=== PATIENT | female | born 1975 | race Caucasian/White ===

== ENCOUNTER 2016-12-08 13:28 | Emergency (ER) | payer MEDICAID, OTHER ==
[~2016-12-08] VITALS: Ht 172.7 cm; Wt 72.7 kg
[~2016-12-08 13:28] MED LIST: ANTIHYPERTENSIVE PO; METF500T4 PO
[2016-12-08] MEDS ORDERED: [UNRECOGNIZED DRUG - REMARK] PO (13:44)
[2016-12-08] MEDS ORDERED: [UNRECOGNIZED DRUG - REMARK] PO (13:44)
[2016-12-08 13:47] LABS: GLUCOSE,POINT OF CARE 411 MG/DL (70-110)
[2016-12-08] MEDS ORDERED: INSULIN REGULAR, HUMAN 100 UNITS/ML IVP ONE (14:15)
[2016-12-08] MEDS ORDERED: SODIUM CHLORIDE 0.9% 1,000 ML IV ONE (14:15)
[2016-12-08 14:27] LABS: HEMATOCRIT 36.4 % (36-46); MEAN CORPUSCULAR VOLUME 83 fL (80-100); PLATELET COUNT (AUTO) 233 K/uL (150-450); RED CELL DISTRIBUTION WIDTH 13.1 % (11.5-14.5); WHITE BLOOD COUNT (AUTO) 7.1 K/uL (4.5-11.0)
[2016-12-08 14:52] LABS: GLUCOSE,POINT OF CARE 392 MG/DL (70-110)
[2016-12-08 14:53] LABS: ANION GAP 15 mmol/L (8-16); CARBON DIOXIDE 18 mmol/L (22-29); CHLORIDE 95 mmol/L (98-107); POTASSIUM 3.9 mmol/L (3.5-5.1); SODIUM SERUM 128 mmol/L (136-145)
[2016-12-08 15:19] LABS: MEAN CORPUSCULAR HGB CONC 35.7 G/dL (31.0-37.0)
[2016-12-08 15:20] LABS: MEAN CORPUSCULAR HEMOGLOBIN 29.5 pg (26.0-34.0)
[2016-12-08 15:24] LABS: LYMPHOCYTES % (MANUAL) 21 % (22-44); RBC MORPHOLOGY COMMENT NORMAL RBC MORPH; TOTAL CELLS COUNTED 100
[2016-12-08 16:02] LABS: BILIRUBIN,TOTAL 0.4 mg/dL (0.1-1.0); CALCIUM, TOTAL 8.9 mg/dL (8.8-10.5); CREATININE 0.54 mg/dL (0.60-1.30); GLOMERULAR FILTR. RATE CALC > 60 mL/min (>60)
[2016-12-08 16:03] LABS: ALANINE AMINOTRANSFERASE 43 U/L (12-78); ASPARTATE AMINOTRANSFERASE 30 U/L (15-37); TOTAL PROTEIN, SERUM 7.3 g/dL (6.4-8.2)
[2016-12-08 16:04] LABS: UREA NITROGEN, BLOOD 12 mg/dL (7-18)
[2016-12-08 16:05] LABS: ALBUMIN 4.2 g/dL (3.4-5.0)
[2016-12-08 16:35] VITALS: BP 140/88
[2016-12-08 18:27] LABS: GLUCOSE,POINT OF CARE 333 MG/DL (70-110)
== END 2016-12-08 16:37 | disposition home or self-care (01) ==
LOC: EMS 13:35
DX: F32.9 Major depressive disorder, single episode, unspecified (principal); E11.65 Type 2 diabetes mellitus with hyperglycemia; F41.9 Anxiety disorder, unspecified; I10 Essential (primary) hypertension; Z91.19 Patient's noncompliance with other medical treatment and regimen
CPT/HCPCS: 36415; 80053; 82962; 85025; 96361; 96374; 99284; G0480; J1815; J7030

== ENCOUNTER 2016-12-21 09:08 | Inpatient (IN) | payer OTHER ==
[~2016-12-21] VITALS: Ht 167.6 cm; Wt 77.5 kg
[~2016-12-21 09:08] MED LIST changes: +[UNRECOGNIZED DRUG - REMARK] PO; +[UNRECOGNIZED DRUG - REMARK] PO
[2016-12-21 09:42] LABS: GLUCOSE COMMENT 2 Doctor Notified; GLUCOSE,POINT OF CARE 412 MG/DL (70-110)
[2016-12-21] MEDS ORDERED: PERCT PO (09:46)
[2016-12-21] MEDS ORDERED: AMOX500T2 PO (09:46)
[2016-12-21] MEDS ORDERED: SODIUM CHLORIDE 0.9% 1,000 ML IV ONE ×3 (10:15→15:15)
[2016-12-21 10:56] LABS: HEMATOCRIT 37.6 % (36-46); MEAN CORPUSCULAR VOLUME 84 fL (80-100); PLATELET COUNT (AUTO) 288 K/uL (150-450); RED BLOOD CELL COUNT(AUTO) 4.46 MIL/uL (4.00-5.20); RED CELL DISTRIBUTION WIDTH 12.8 % (11.5-14.5); WHITE BLOOD COUNT (AUTO) 6.6 K/uL (4.5-11.0)
[2016-12-21 11:02] LABS: LYMPHOCYTES % (MANUAL) 26 % (22-44); RBC MORPHOLOGY COMMENT NORMAL RBC MORPH; TOTAL CELLS COUNTED 100
[2016-12-21 11:07] LABS: GLUCOSE,POINT OF CARE 378 MG/DL (70-110)
[2016-12-21 11:08] LABS: ANION GAP 22 mmol/L (8-16); CARBON DIOXIDE 13 mmol/L (22-29); CHLORIDE 90 mmol/L (98-107); POTASSIUM 3.6 mmol/L (3.5-5.1); SODIUM SERUM 125 mmol/L (136-145)
[2016-12-21 11:28] LABS: ASPARTATE AMINOTRANSFERASE 14 U/L (15-37); BILIRUBIN,TOTAL 0.5 mg/dL (0.1-1.0); CALCIUM, TOTAL 8.8 mg/dL (8.8-10.5); CREATININE 0.59 mg/dL (0.60-1.30); GLOMERULAR FILTR. RATE CALC > 60 mL/min (>60)
[2016-12-21 11:29] LABS: ALANINE AMINOTRANSFERASE 32 U/L (12-78); ALBUMIN 4.2 g/dL (3.4-5.0)
[2016-12-21 11:30] LABS: UREA NITROGEN, BLOOD 10 mg/dL (7-18)
[2016-12-21] MEDS ORDERED: KETOROLAC TROMETHAMINE 30 MG/ML VIAL IVP ONE (11:30)
[2016-12-21 12:29] LABS: APPEARANCE,URINE CLEAR (CLEAR); GLUCOSE, URINE (UA) >=1000 mg/dL (NEGATIVE); KETONES,URINE TRACE mg/dL (NEGATIVE); LEUKOCYTE ESTERASE ,URINE NEGATIVE (NEGATIVE); OCCULT BLOOD,URINE NEGATIVE (NEGATIVE); PH,URINE 5.5 (5.0-8.0); PROTEIN,URINE NEGATIVE (NEGATIVE)
[2016-12-21 12:32] LABS: ANION GAP 21 mmol/L (8-16); CARBON DIOXIDE 12 mmol/L (22-29); CHLORIDE 93 mmol/L (98-107); POTASSIUM 3.5 mmol/L (3.5-5.1); SODIUM SERUM 126 mmol/L (136-145)
[2016-12-21 12:35] LABS: RBC,URINE None Seen /HPF (0-2); SQUAMOUS EPITHELIAL CELL,UR Few /LPF (None Seen); WBC,URINE None Seen /HPF (0-5)
[2016-12-21 13:05] LABS: ALANINE AMINOTRANSFERASE 32 U/L (12-78); ASPARTATE AMINOTRANSFERASE 13 U/L (15-37); BILIRUBIN,TOTAL 0.4 mg/dL (0.1-1.0); CREATININE 0.42 mg/dL (0.60-1.30); GLOMERULAR FILTR. RATE CALC > 60 mL/min (>60); TOTAL PROTEIN, SERUM 6.1 g/dL (6.4-8.2)
[2016-12-21 13:06] LABS: ALBUMIN 3.6 g/dL (3.4-5.0); UREA NITROGEN, BLOOD 10 mg/dL (7-18)
[2016-12-21 13:17] LABS: GLUCOSE,POINT OF CARE 307 MG/DL (70-110)
[2016-12-21] MEDS ORDERED: POTASSIUM CHL 20 MEQ/0.45% NS 1,000 ML IV PRN (13:23)
[2016-12-21] MEDS ORDERED: SODIUM CHLORIDE 0.45% 1,000 ML IV PRN (13:23)
[2016-12-21] MEDS ORDERED: INSULIN REGULAR, HUMAN 100 UNITS in SODIUM CHLORIDE 0.9% 99 ML IV PRN ×2 (13:23)
[2016-12-21] MEDS ORDERED: POTASSIUM CHLORIDE 40 MEQ in SODIUM CHLORIDE 0.45% 1,000 ML IV PRN (13:23)
[2016-12-21] MEDS ORDERED: SODIUM CHLORIDE 0.9% 1,000 ML IV SCH (13:23)
[2016-12-21] MEDS ORDERED: DEXTROSE 5%-0.45% SODIUM CHL 1,000 ML IV PRN (13:23)
[2016-12-21 13:25] LABS: MAGNESIUM 1.44 mg/dL (1.80-2.40); PHOSPHORUS 3.5 mg/dL (2.5-4.9)
[2016-12-21] MEDS ORDERED: INSULIN REGULAR, HUMAN 100 UNITS/ML IVP ONE (13:30)
[2016-12-21] MEDS ORDERED: 0.9% SODIUM CHLORIDE 10 ML SYRINGE IVP PRN (13:30)
[2016-12-21] MEDS ORDERED: ACETAMINOPHEN 325 MG TABLET PO PRN ×2 (13:30→15:30)
[2016-12-21] MEDS ORDERED: DEXTROSE 50%-WATER 25 GM/50 ML SYRINGE IVP PRN ×2 (13:30→15:45)
[2016-12-21] MEDS ORDERED: ONDANSETRON HCL 4 MG/2 ML VIAL IVP PRN ×2 (13:30→15:30)
[2016-12-21] MEDS ORDERED: INSULIN REGULAR, HUMAN 100 UNITS/ML IVP PRN (13:30)
[2016-12-21 13:57] LABS: GLUCOSE,POINT OF CARE 294 MG/DL (70-110)
[2016-12-21 14:11] LABS: HEMOGLOBIN 13.5 g/dL (12.0-16.0)
[2016-12-21 14:12] LABS: MEAN CORPUSCULAR HEMOGLOBIN 30.2 pg (26.0-34.0); MEAN CORPUSCULAR HGB CONC 35.8 G/dL (31.0-37.0)
[2016-12-21 14:24] LABS: HEMATOCRIT 31.7 % (36-46); MEAN CORPUSCULAR VOLUME 84 fL (80-100); PLATELET COUNT (AUTO) 257 K/uL (150-450); RED BLOOD CELL COUNT(AUTO) 3.78 MIL/uL (4.00-5.20); RED CELL DISTRIBUTION WIDTH 12.8 % (11.5-14.5); WHITE BLOOD COUNT (AUTO) 6.4 K/uL (4.5-11.0)
[2016-12-21 14:26] LABS: ABG BASE EXCESS -1.9 mmol/L (-2.0-3.0); ABG HCO3 23.2 mmol/L (22.0-26.0); ABG OXYHEMOGLOBIN 94.6 % (94.0-100.0); ABG PCO2 36 mmHg (35-45); ABG PH 7.421 (7.350-7.450); TEMPERATURE, FAHRENHEIT, BG 98.7 FAHREN (96.0-98.6)
[2016-12-21 14:27] LABS: ALLEN TEST, BLOOD GAS Positive
[2016-12-21 14:32] LABS: ANION GAP 16 mmol/L (8-16); CARBON DIOXIDE 16 mmol/L (22-29); CHLORIDE 97 mmol/L (98-107); POTASSIUM 3.3 mmol/L (3.5-5.1); SODIUM SERUM 129 mmol/L (136-145)
[2016-12-21] MEDS: POTASSIUM CHL 40 MEQ/D5-0.45NS 1,000 ML IV SCH ×2 (14:42→14:45)
[2016-12-21 14:50] LABS: CALCIUM, TOTAL 7.7 mg/dL (8.8-10.5); CREATININE 0.36 mg/dL (0.60-1.30); GLOMERULAR FILTR. RATE CALC > 60 mL/min (>60); UREA NITROGEN, BLOOD 8 mg/dL (7-18)
[2016-12-21 14:51] LABS: HEMOGLOBIN 11.2 g/dL (12.0-16.0); MEAN CORPUSCULAR HEMOGLOBIN 29.6 pg (26.0-34.0); MEAN CORPUSCULAR HGB CONC 35.4 G/dL (31.0-37.0)
[2016-12-21 14:58] LABS: GLUCOSE,POINT OF CARE 249 MG/DL (70-110)
[2016-12-21] MEDS ORDERED: INSULIN REGULAR, HUMAN 100 UNITS/ML SQ STA (15:05)
[2016-12-21] MEDS ORDERED: ALBUTEROL SULFATE 2.5 MG/0.5 ML NEB SOLUTION NEB PRN (15:30)
[2016-12-21] MEDS ORDERED: IPRATROPIUM BROMIDE 0.5 MG/2.5 ML NEB SOLUTION NEB PRN (15:30)
[2016-12-21] MEDS ORDERED: MAGNESIUM HYDROXIDE SUSPENSION 30 ML UDCUP PO PRN (15:30)
[2016-12-21] MEDS ORDERED: BISACODYL 10 MG RECTAL RECTAL SUPPOSITORY PR PRN (15:30)
[2016-12-21] MEDS ORDERED: ZOLPIDEM TARTRATE 5 MG TABLET PO PRN (15:30)
[2016-12-21 15:45] LABS: BAND NEUTROPHILS % (MANUAL) 1 % (1-5); EOSINOPHILS % (MANUAL) 2 % (1-6); LYMPHOCYTES % (MANUAL) 21 % (22-44); REACTIVE LYMPHOCYTES 2 % (0-0); TOTAL CELLS COUNTED 100
[2016-12-21] MEDS: SODIUM CHLORIDE 0.9% 1,000 ML IV SCH ×2 (15:45→18:35)
[2016-12-21 15:54] LABS: RBC MORPHOLOGY COMMENT NORMAL RBC MORPH
[2016-12-21 16:14] VITALS: BP 143/88
[2016-12-21 16:33] VITALS: BP 143/88
[2016-12-21] MEDS: MORPHINE SULFATE 2 MG/ML SYRINGE IVP PRN ×2 (16:45→22:53)
[2016-12-21] MEDS: HEPARIN SODIUM,PORCINE 5,000 UNITS/ML VIAL SQ SCH ×2 (16:45→22:53)
[2016-12-21 17:27] LABS: GLUCOSE COMMENT 1 Received Meds; GLUCOSE,POINT OF CARE 188 MG/DL (70-110)
[2016-12-21] MEDS ORDERED: INSULIN DETEMIR 100 UNITS/ML SQ SCH (17:30)
[2016-12-21] MEDS: INSULIN ASPART 100 UNITS/ML SQ PRN ×2 (18:04→20:10)
[2016-12-21 18:23] LABS: ANION GAP 21 mmol/L (8-16); CARBON DIOXIDE 13 mmol/L (22-29); CHLORIDE 96 mmol/L (98-107); POTASSIUM 3.3 mmol/L (3.5-5.1); SODIUM SERUM 130 mmol/L (136-145); UREA NITROGEN, BLOOD 7 mg/dL (7-18)
[2016-12-21 18:25] LABS: CREATININE 0.35 mg/dL (0.60-1.30); GLOMERULAR FILTR. RATE CALC > 60 mL/min (>60)
[2016-12-21 19:53] VITALS: BP 120/77
[2016-12-21] MEDS: DOCUSATE SODIUM 100 MG CAPSULE PO SCH (20:10)
[2016-12-21 21:23] LABS: GLUCOSE COMMENT 1 Received Meds; GLUCOSE,POINT OF CARE 328 MG/DL (70-110)
[2016-12-21 22:01] LABS: ANION GAP 14 mmol/L (8-16); CARBON DIOXIDE 19 mmol/L (22-29); CHLORIDE 98 mmol/L (98-107); SODIUM SERUM 131 mmol/L (136-145)
[2016-12-21 22:25] LABS: CALCIUM, TOTAL 7.7 mg/dL (8.8-10.5); CREATININE 0.43 mg/dL (0.60-1.30); GLOMERULAR FILTR. RATE CALC > 60 mL/min (>60)
[2016-12-21 22:26] LABS: UREA NITROGEN, BLOOD 8 mg/dL (7-18)
[2016-12-21 23:08] LABS: GLUCOSE COMMENT 1 Received Meds; GLUCOSE,POINT OF CARE 235 MG/DL (70-110)
[2016-12-22] MEDS ORDERED: POTASSIUM CHLORIDE 20 MEQ ER TABLET PO ONE
[2016-12-22 00:07] VITALS: BP 120/70
[2016-12-22 04:30] VITALS: BP 133/87
[2016-12-22 05:18] LABS: GLUCOSE COMMENT 1 Received Meds; GLUCOSE,POINT OF CARE 266 MG/DL (70-110)
[2016-12-22] MEDS: SODIUM CHLORIDE 0.9% 1,000 ML IV SCH ×2 (06:00→11:30)
[2016-12-22] MEDS: INSULIN ASPART 100 UNITS/ML SQ PRN (06:04)
[2016-12-22 06:22] LABS: HEMATOCRIT 35.3 % (36-46); MEAN CORPUSCULAR VOLUME 85 fL (80-100); PLATELET COUNT (AUTO) 280 K/uL (150-450); RED BLOOD CELL COUNT(AUTO) 4.15 MIL/uL (4.00-5.20); RED CELL DISTRIBUTION WIDTH 12.8 % (11.5-14.5); WHITE BLOOD COUNT (AUTO) 5.9 K/uL (4.5-11.0)
[2016-12-22 07:03] LABS: ANION GAP 10 mmol/L (8-16); CARBON DIOXIDE 24 mmol/L (22-29); CHLORIDE 96 mmol/L (98-107); POTASSIUM 3.6 mmol/L (3.5-5.1); SODIUM SERUM 130 mmol/L (136-145)
[2016-12-22 07:47] LABS: CALCIUM, TOTAL 7.9 mg/dL (8.8-10.5); CREATININE 0.36 mg/dL (0.60-1.30); GLOMERULAR FILTR. RATE CALC > 60 mL/min (>60)
[2016-12-22 07:48] LABS: ALANINE AMINOTRANSFERASE 31 U/L (12-78); ALBUMIN 3.8 g/dL (3.4-5.0); ASPARTATE AMINOTRANSFERASE 19 U/L (15-37); BILIRUBIN,TOTAL 0.4 mg/dL (0.1-1.0); TOTAL PROTEIN, SERUM 6.4 g/dL (6.4-8.2)
[2016-12-22 07:49] LABS: UREA NITROGEN, BLOOD 6 mg/dL (7-18)
[2016-12-22 07:50] VITALS: BP 134/75
[2016-12-22 07:56] LABS: MAGNESIUM 1.44 mg/dL (1.80-2.40)
[2016-12-22 08:04] LABS: HEMOGLOBIN 12.2 g/dL (12.0-16.0)
[2016-12-22 08:05] LABS: MEAN CORPUSCULAR HEMOGLOBIN 29.4 pg (26.0-34.0); MEAN CORPUSCULAR HGB CONC 34.6 G/dL (31.0-37.0)
[2016-12-22] MEDS: HYDROCODONE/ACETAMINOPHEN 5-325 MG TABLET PO PRN ×2 (08:44→16:02)
[2016-12-22] MEDS: DOCUSATE SODIUM 100 MG CAPSULE PO SCH (08:45)
[2016-12-22] MEDS: HEPARIN SODIUM,PORCINE 5,000 UNITS/ML VIAL SQ SCH (08:45)
[2016-12-22] MEDS ORDERED: ENOXAPARIN SODIUM 40 MG/0.4 ML PF SYRINGE SQ SCH (09:00)
[2016-12-22] MEDS ORDERED: PANTOPRAZOLE SODIUM 40 MG/VIAL IVP SCH (09:00)
[2016-12-22 09:41] LABS: ANION GAP 12 mmol/L (8-16); CARBON DIOXIDE 22 mmol/L (22-29); CHLORIDE 96 mmol/L (98-107); POTASSIUM 3.5 mmol/L (3.5-5.1); SODIUM SERUM 130 mmol/L (136-145)
[2016-12-22 09:55] LABS: EOSINOPHILS % (MANUAL) 1 % (1-6); LYMPHOCYTES % (MANUAL) 28 % (22-44); REACTIVE LYMPHOCYTES 1 % (0-0); TOTAL CELLS COUNTED 100
[2016-12-22 10:13] LABS: CALCIUM, TOTAL 8.2 mg/dL (8.8-10.5); CREATININE 0.47 mg/dL (0.60-1.30); GLOMERULAR FILTR. RATE CALC > 60 mL/min (>60)
[2016-12-22 10:14] LABS: UREA NITROGEN, BLOOD 5 mg/dL (7-18)
[2016-12-22 11:17] LABS: GLUCOSE,POINT OF CARE 245 MG/DL (70-110)
[2016-12-22 13:41] LABS: ANION GAP 11 mmol/L (8-16); CARBON DIOXIDE 24 mmol/L (22-29); CHLORIDE 95 mmol/L (98-107); POTASSIUM 3.7 mmol/L (3.5-5.1); SODIUM SERUM 130 mmol/L (136-145)
[2016-12-22 14:00] LABS: CALCIUM, TOTAL 8.3 mg/dL (8.8-10.5); CREATININE 0.42 mg/dL (0.60-1.30); GLOMERULAR FILTR. RATE CALC > 60 mL/min (>60); UREA NITROGEN, BLOOD 6 mg/dL (7-18)
[2016-12-22 15:37] VITALS: BP 111/66
[2016-12-22] MEDS ORDERED: INSULIN DETEMIR 100 UNITS/ML SQ SCH (18:00)
== END 2016-12-22 16:00 | disposition home or self-care (01) | DRG 420 ==
LOC: EMS 09:11 → ICU 13:52 → 6N 15:45
PROVIDERS: ADMIT Hospitalist; ATTEND Hospitalist
DX: E11.01 Type 2 diabetes mellitus with hyperosmolarity with coma (principal); E83.42 Hypomagnesemia; I10 Essential (primary) hypertension; E87.1 Hypo-osmolality and hyponatremia; Z98.51 Tubal ligation status
CPT/HCPCS: 82805; 82962; 83605; 83735; 84100; 96361; 96374; 96375; 99291; C9113; J1644; J1815; J1885; J2270; J3480; J7030; J7050

== ENCOUNTER 2017-08-15 19:51 | Emergency (ER) | payer OTHER ==
[~2017-08-15] VITALS: Ht 170.2 cm; Wt 78.2 kg
[~2017-08-15 19:51] MED LIST changes: -ANTIHYPERTENSIVE PO; -METF500T4 PO; -[UNRECOGNIZED DRUG - REMARK] PO
[2017-08-15 20:23] LABS: GLUCOSE,POINT OF CARE 255 MG/DL (70-110)
[2017-08-15] MEDS ORDERED: CITA-106 PO (20:25)
[2017-08-15] MEDS ORDERED: GABA-531 PO (20:25)
[2017-08-15] MEDS ORDERED: ALPR0.255 PO (20:25)
[2017-08-15] MEDS ORDERED: INSLAN SQ (20:25)
[2017-08-15] MEDS ORDERED: INSU100C6 SQ (20:25)
[2017-08-15 21:29] LABS: BASOPHILS % (AUTO) 0.8 % (0.0-2.0); EOSINOPHILS % (AUTO) 2.7 % (1.0-6.0); HEMATOCRIT 39.2 % (36-46); HEMOGLOBIN 13.9 g/dL (12.0-16.0); LYMPHOCYTES # (AUTO) 2.1 K/uL (1.0-4.8); LYMPHOCYTES % (AUTO) 26.9 % (22.0-44.0); MEAN CORPUSCULAR HEMOGLOBIN 29.6 pg (26.0-34.0); MEAN CORPUSCULAR HGB CONC 35.4 G/dL (31.0-37.0); MEAN CORPUSCULAR VOLUME 84 fL (80-100); MONOCYTES # (AUTO) 0.5 K/uL (0.1-1.0); MONOCYTES % (AUTO) 6.6 % (2.0-9.0); PLATELET COUNT (AUTO) 269 K/uL (150-450); RED BLOOD CELL COUNT(AUTO) 4.68 MIL/uL (4.00-5.20); RED CELL DISTRIBUTION WIDTH 13.5 % (11.5-14.5)
[2017-08-15 21:36] LABS: APPEARANCE,URINE CLEAR (CLEAR); BILIRUBIN,URINE NEGATIVE (NEGATIVE); GLUCOSE, URINE (UA) 500 mg/dL (NEGATIVE); KETONES,URINE TRACE mg/dL (NEGATIVE); LEUKOCYTE ESTERASE ,URINE NEGATIVE (NEGATIVE); NITRATE,URINE NEGATIVE (NEGATIVE); OCCULT BLOOD,URINE NEGATIVE (NEGATIVE); PH,URINE 5.5 (5.0-8.0); PROTEIN,URINE POS 1+ (NEGATIVE); UROBILINOGEN,URINE 0.2 mg/dL (<=1.0)
[2017-08-15 21:39] LABS: ANION GAP 13 mmol/L (8-16); CALCIUM, TOTAL 8.8 mg/dL (8.8-10.5); CARBON DIOXIDE 24 mmol/L (22-29); CHLORIDE 99 mmol/L (98-107); CREATININE 0.57 mg/dL (0.60-1.30); GLOMERULAR FILTR. RATE CALC > 60 mL/min (>60); GLUCOSE,RANDOM 253 mg/dL (70-110); POTASSIUM 3.7 mmol/L (3.5-5.1); SODIUM SERUM 136 mmol/L (136-145); UREA NITROGEN, BLOOD 14 mg/dL (7-18)
[2017-08-15 21:44] LABS: ALANINE AMINOTRANSFERASE 56 U/L (12-78); ALBUMIN 4.1 g/dL (3.4-5.0); ALKALINE PHOSPHATASE 75 U/L (46-116); ASPARTATE AMINOTRANSFERASE 17 U/L (15-37); BILIRUBIN,TOTAL 0.7 mg/dL (0.1-1.0); TOTAL PROTEIN, SERUM 8.2 g/dL (6.4-8.2)
[2017-08-15] MEDS ORDERED: SODIUM CHLORIDE 0.9% 1,000 ML IV ONE ×2 (21:45→22:00)
[2017-08-15 21:55] LABS: BACTERIA,URINE Few /HPF (None Seen); RBC,URINE 0-2 /HPF (0-2); WBC,URINE 0-2 /HPF (0-5)
[2017-08-15 21:56] LABS: SQUAMOUS EPITHELIAL CELL,UR Moderate /LPF (None Seen); YEAST,URINE Rare /HPF (None Seen)
[2017-08-15 22:27] VITALS: BP 142/87
[2017-08-15] MEDS ORDERED: PHENYLEPHRINE HCL 0.25% 15 ML NASAL SPRAY NASAL ONE (22:30)
== END 2017-08-15 23:20 | disposition home or self-care (01) ==
LOC: EMS 19:52
DX: E11.65 Type 2 diabetes mellitus with hyperglycemia (principal); E86.0 Dehydration; E78.00 Pure hypercholesterolemia, unspecified; I10 Essential (primary) hypertension; J32.9 Chronic sinusitis, unspecified; Z79.4 Long term (current) use of insulin
CPT/HCPCS: 36415; 80053; 81001; 82962; 85025; 96360; 99284; J7030

== ENCOUNTER 2018-09-24 17:34 | Emergency (ER) | payer OTHER ==
[~2018-09-24] VITALS: Ht 165.1 cm; Wt 77.3 kg
[~2018-09-24 17:34] MED LIST changes: +ALPR0.255 PO; +CITA-106 PO; +GABA-531 PO; +INSLAN SQ; +INSU100C6 SQ; -[UNRECOGNIZED DRUG - REMARK] PO
[2018-09-24 17:59] LABS: GLUCOSE,POINT OF CARE 163 MG/DL (70-110)
[2018-09-24 18:21] LABS: BASOPHILS % (AUTO) 0.9 % (0.0-2.0); EOSINOPHILS % (AUTO) 1.6 % (1.0-6.0); HEMATOCRIT 39.2 % (36-46); HEMOGLOBIN 13.7 g/dL (12.0-16.0); LYMPHOCYTES # (AUTO) 2.5 K/uL (1.0-4.8); LYMPHOCYTES % (AUTO) 29.5 % (22.0-44.0); MEAN CORPUSCULAR HEMOGLOBIN 30.3 pg (26.0-34.0); MEAN CORPUSCULAR HGB CONC 34.8 G/dL (31.0-37.0); MEAN CORPUSCULAR VOLUME 87 fL (80-100); MONOCYTES # (AUTO) 0.3 K/uL (0.1-1.0); NEUTROPHILS # (AUTO) 5.4 K/uL (1.8-7.7); PLATELET COUNT (AUTO) 275 K/uL (150-450); RED BLOOD CELL COUNT(AUTO) 4.51 MIL/uL (4.00-5.20); RED CELL DISTRIBUTION WIDTH 13.3 % (11.5-14.5)
[2018-09-24 18:31] LABS: ANION GAP 11 mmol/L (8-16); CARBON DIOXIDE 26 mmol/L (22-29); CHLORIDE 101 mmol/L (98-107); CREATININE 0.72 mg/dL (0.60-1.30); GLOMERULAR FILTR. RATE CALC > 60 mL/min (>60); GLUCOSE,RANDOM 160 mg/dL (70-110); POTASSIUM 3.6 mmol/L (3.5-5.1); SODIUM SERUM 138 mmol/L (136-145); UREA NITROGEN, BLOOD 14 mg/dL (7-18)
[2018-09-24 18:32] LABS: PROTHROMBIN TIME 10.1 SEC (9.4-11.6)
[2018-09-24 18:42] LABS: ALANINE AMINOTRANSFERASE 61 U/L (12-78); ALKALINE PHOSPHATASE 68 U/L (46-116); BILIRUBIN,TOTAL 0.4 mg/dL (0.1-1.0); CREATINE KINASE, TOTAL ONLY 42 U/L (26-192); HCG,QUANTITATIVE < 1 mIU/mL (0-6); TOTAL PROTEIN, SERUM 7.9 g/dL (6.4-8.2)
[2018-09-24 18:54] LABS: B-TYPE NATRIURETIC PEPTIDE 47 pg/mL (0-100)
[2018-09-24] MEDS ORDERED: KETOROLAC TROMETHAMINE 30 MG/ML VIAL IVP ONE (19:00)
[2018-09-24 19:04] LABS: ASPARTATE AMINOTRANSFERASE 34 U/L (15-37)
[2018-09-24 20:54] LABS: BILIRUBIN,URINE NEGATIVE (NEGATIVE); GLUCOSE, URINE (UA) NEGATIVE (NEGATIVE); KETONES,URINE NEGATIVE (NEGATIVE); LEUKOCYTE ESTERASE ,URINE SMALL (NEGATIVE); NITRATE,URINE NEGATIVE (NEGATIVE); OCCULT BLOOD,URINE TRACE (NEGATIVE); PH,URINE 6.5 (5.0-8.0); PROTEIN,URINE NEGATIVE (NEGATIVE)
[2018-09-24 20:57] LABS: APPEARANCE,URINE HAZY (CLEAR); BACTERIA,URINE None Seen /HPF (None Seen); RBC,URINE 0-2 /HPF (0-2); SQUAMOUS EPITHELIAL CELL,UR Moderate /LPF (None Seen)
[2018-09-24 22:03] VITALS: BP 142/90
== END 2018-09-24 22:06 | disposition home or self-care (01) ==
LOC: EMS 17:36
DX: M54.6 Pain in thoracic spine (principal); R07.89 Other chest pain; E11.9 Type 2 diabetes mellitus without complications; E78.00 Pure hypercholesterolemia, unspecified; I10 Essential (primary) hypertension; Z79.4 Long term (current) use of insulin
CPT/HCPCS: 36415; 71045; 80053; 81001; 82550; 82962; 83880; 84484; 84702; 85025; 85610; 85730; 93005; 96374; 99285; J1885

== ENCOUNTER 2018-09-25 15:19 | Emergency (ER) | payer OTHER ==
[~2018-09-25] VITALS: Ht 167.6 cm; Wt 78.7 kg
[2018-09-25 15:33] LABS: GLUCOSE,POINT OF CARE 143 MG/DL (70-110)
[2018-09-25 16:29] LABS: EOSINOPHILS % (AUTO) 0.6 % (1.0-6.0); HEMATOCRIT 41.5 % (36-46); HEMOGLOBIN 14.3 g/dL (12.0-16.0); LYMPHOCYTES # (AUTO) 1.8 K/uL (1.0-4.8); LYMPHOCYTES % (AUTO) 17.2 % (22.0-44.0); MEAN CORPUSCULAR HEMOGLOBIN 29.8 pg (26.0-34.0); MEAN CORPUSCULAR HGB CONC 34.4 G/dL (31.0-37.0); MEAN CORPUSCULAR VOLUME 87 fL (80-100); MONOCYTES # (AUTO) 0.4 K/uL (0.1-1.0); MONOCYTES % (AUTO) 3.9 % (2.0-9.0); NEUTROPHILS # (AUTO) 7.9 K/uL (1.8-7.7); NEUTROPHILS % (AUTO) 77.3 % (40.0-70.0); PLATELET COUNT (AUTO) 273 K/uL (150-450); RED BLOOD CELL COUNT(AUTO) 4.79 MIL/uL (4.00-5.20); RED CELL DISTRIBUTION WIDTH 13.3 % (11.5-14.5)
[2018-09-25] MEDS ORDERED: MORPHINE SULFATE 4 MG/ML SYRINGE IVP ONE (16:30)
[2018-09-25] MEDS ORDERED: ONDANSETRON HCL 4 MG/2 ML VIAL IVP ONE ×2 (16:30→19:30)
[2018-09-25 16:45] LABS: ANION GAP 11 mmol/L (8-16); CALCIUM, TOTAL 9.8 mg/dL (8.8-10.5); CARBON DIOXIDE 25 mmol/L (22-29); CHLORIDE 97 mmol/L (98-107); CREATININE 0.68 mg/dL (0.60-1.30); GLOMERULAR FILTR. RATE CALC > 60 mL/min (>60); GLUCOSE,RANDOM 195 mg/dL (70-110); SODIUM SERUM 133 mmol/L (136-145); UREA NITROGEN, BLOOD 11 mg/dL (7-18)
[2018-09-25 17:10] LABS: ALANINE AMINOTRANSFERASE 63 U/L (12-78); ALBUMIN 4.2 g/dL (3.4-5.0); ALKALINE PHOSPHATASE 62 U/L (46-116); ASPARTATE AMINOTRANSFERASE 39 U/L (15-37); BILIRUBIN,TOTAL 0.8 mg/dL (0.1-1.0); CREATINE KINASE, TOTAL ONLY 136 U/L (26-192); TOTAL PROTEIN, SERUM 8.2 g/dL (6.4-8.2)
[2018-09-25] MEDS ORDERED: SODIUM CHLORIDE 0.9% 1,000 ML IV ONE (17:45)
[2018-09-25] MEDS ORDERED: SODIUM CHLORIDE 0.9% 100 ML ONE (18:11)
[2018-09-25] MEDS ORDERED: IOVERSOL 320 MG/ML 100 ML VIAL ONE (18:11)
[2018-09-25] MEDS ORDERED: NITROGLYCERIN 2% (1 GM=INCH) PACKET TP ONE (18:15)
[2018-09-25] MEDS ORDERED: MORPHINE SULFATE 2 MG/ML SYRINGE IVP ONE (18:30)
[2018-09-25] MEDS ORDERED: ASPIRIN 325 MG EC TABLET PO ONE (20:00)
[2018-09-25] MEDS ORDERED: HEPARIN SODIUM,PORCINE 5,000 UNITS/ML VIAL IVP PRN ×2 (20:00)
[2018-09-25] MEDS ORDERED: HEPARIN SODIUM 25000 UNITS/D5W 250 ML IV PRN (20:00)
[2018-09-25 20:28] LABS: PROTHROMBIN TIME 10.3 SEC (9.4-11.6)
[2018-09-25] MEDS ORDERED: HEPARIN SODIUM,PORCINE 5,000 UNITS/ML VIAL IVP ONE (20:30)
[2018-09-25] MEDS ORDERED: HYDROmorphone 2 MG/ML SYRINGE IVP ONE (21:30)
[2018-09-25] MEDS ORDERED: METOCLOPRAMIDE HCL 5 MG/ML 2 ML VIAL IVP ONE (21:45)
[2018-09-25] MEDS ORDERED: SODIUM CHLORIDE 0.9% 500 ML IV ONE (21:45)
[2018-09-25 22:02] VITALS: BP 129/81
== END 2018-09-25 23:00 | disposition short-term general hospital (02) ==
LOC: EMS 15:20
DX: I21.4 Non-ST elevation (NSTEMI) myocardial infarction (principal); E11.9 Type 2 diabetes mellitus without complications; I10 Essential (primary) hypertension; E78.00 Pure hypercholesterolemia, unspecified; Z79.4 Long term (current) use of insulin
CPT/HCPCS: 36415; 71260; 80053; 82550; 82962; 84484; 85025; 85610; 85730; 93005 ×2; 96365; 96366; 96375; 96376; 99291; J1170; J1644 ×2; J2270 ×2; J2405; J2765; J7030; J7040; J7050; Q9967

== ENCOUNTER 2024-06-30 18:25 | Emergency (ER) | payer MEDICAID, OTHER ==
[~2024-06-30] VITALS: Ht 165.1 cm; Wt 70.5 kg
[~2024-06-30 18:25] MED LIST changes: -ALPR0.255 PO; +CIPR500T10 PO; -CITA-106 PO; +CITA-144 PO; +GABA-1181 PO; -GABA-531 PO; -INSU100C6 SQ
[2024-06-30 18:35] VITALS: BP 171/94; PULSE 90; RESP 18; TEMP 98.4; O2SAT 99
[2024-06-30] MEDS ORDERED: UNKNOWN INSULIN SQ (18:36)
[2024-06-30] MEDS ORDERED: DOXY100T21 PO (18:36)
[2024-06-30] MEDS ORDERED: DOXY-466 PO (18:36)
[2024-06-30 19:10] LABS: EOSINOPHILS % (AUTO) 1.6 % (1.0-6.0); HEMATOCRIT 41.5 % (36-46); HEMOGLOBIN 14.2 g/dL (12.0-16.0); LYMPHOCYTES # (AUTO) 1.8 K/uL (1.0-4.8); LYMPHOCYTES % (AUTO) 26.4 % (22.0-44.0); MEAN CORPUSCULAR HEMOGLOBIN 29.6 pg (26.0-34.0); MEAN CORPUSCULAR HGB CONC 34.2 G/dL (31.0-37.0); MEAN CORPUSCULAR VOLUME 87 fL (80-100); MONOCYTES # (AUTO) 0.3 K/uL (0.1-1.0); MONOCYTES % (AUTO) 4.8 % (2.0-9.0); NEUTROPHILS # (AUTO) 4.6 K/uL (1.8-7.7); NEUTROPHILS % (AUTO) 66.2 % (40.0-70.0); PLATELET COUNT (AUTO) 263 K/uL (150-450); RED BLOOD CELL COUNT(AUTO) 4.78 MIL/uL (4.00-5.20); RED CELL DISTRIBUTION WIDTH 13.5 % (11.5-14.5)
[2024-06-30 19:16] LABS: ANION GAP 6 mmol/L (8-16); CALCIUM, TOTAL 9.8 mg/dL (8.8-10.5); CARBON DIOXIDE 27 mmol/L (22-29); CHLORIDE 100 mmol/L (98-107); CREATININE 0.48 mg/dL (0.60-1.30); GLOMERULAR FILTR. RATE CALC > 60 mL/min (>60); GLUCOSE,RANDOM 359 mg/dL (70-110); POTASSIUM 3.9 mmol/L (3.5-5.1); SODIUM SERUM 133 mmol/L (136-145); UREA NITROGEN, BLOOD 10 mg/dL (7-18)
[2024-07-01] MEDS: INSULIN REGULAR, HUMAN 100 UNITS/ML IVP ONE (00:35)
[2024-07-01] MEDS: SODIUM CHLORIDE 0.9% 1,000 ML IV ONE (00:35)
== END 2024-07-01 02:10 | disposition home or self-care (01) ==
LOC: EMS 18:25
DX: L03.031 Cellulitis of right toe (principal); E11.65 Type 2 diabetes mellitus with hyperglycemia; I10 Essential (primary) hypertension; E78.00 Pure hypercholesterolemia, unspecified
CPT/HCPCS: 99283; 80048; 84703; 85025; 36415; 96374; 96361; J1815; J7030